=== PATIENT | female | born 1990 | race African-American/Black ===

== ENCOUNTER 2017-04-30 04:06 | Emergency (ER) | payer OTHER ==
[2017-04-30 04:19] VITALS: BMI 54.8
[2017-04-30] MEDS ORDERED: KETOROLAC TROMETHAMINE 30 MG/1 ML VIAL IM ONE (04:28)
--- NOTE | 2017-04-30 04:33 | PDOC ---
History of Present Illness - General Chief Complaint: Pain Stated Complaint: LEG PAIN Time Seen by Provider: 04/30/17 04:15 History Source: Patient Exam Limitations: No Limitations - History of Present Illness Initial Comments: 04/30/17 04:29 26yo Female patient morbidly obese presents to ED c/o right LE/Knee pain. 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 While sleeping this morning, pain returned and worse. Patient came in for evaluation. Denies OTC medication use. LNMP: 1 month ago. Occurred: reports: yesterday Severity: Yes: moderate Lower Extremity Pain Location: right: knee Method of Injury: No: unknown, assault, burn, direct blow, fell, incised, motor vehicle accident, sports injury, twisted, other Modifying Factors: worse with: None, cold therapy, immobilization, pain medication, rest, other Associated Symptoms: See HPI Lower Ext. Injury Location - Specific Injury Location Knees: right soft tissue tenderness, right pain, left non-tender, bilateral no evidence of injury, bilateral normal range of motion, bilateral normal inspection Extremity Pain Location - Extremity Pain Location Extremity Pain Locations: right: knee, leg Past History - Travel Traveled outside of the country in the last 30 days: No Close contact w/someone who was outside of country & ill: No - Past Medical History Allergies/Adverse Reactions: Allergies Allergy/AdvReac Type Severity Reaction Status Date / Time No Known Allergies Allergy Verified 04/30/17 04:17 - Suicide/Smoking/Psychosocial Hx Smoking History: Never smoked Have you smoked in the past 12 months: No Information on smoking cessation initiated: No Hx Alcohol Use: No Drug/Substance Use Hx: No Review of Systems - Review of Systems Able to Perform ROS?: Yes Is the patient limited [place] proficient: No Musculoskeletal: Yes: Joint Pain, Other (Right leg pain) All Other Systems: Reviewed and Negative *Physical Exam - Vital Signs Last Vital Signs Temp Pulse Resp BP Pulse Ox 98.0 F 76 14 119/70 98 04/30/17 04:17 04/30/17 04:17 04/30/17 04:17 04/30/17 04:17 04/30/17 04:17 - Physical Exam General Appearance: Yes: Nourished, Appropriately Dressed, Mild Distress. No: Apparent Distress, Moderate Distress, Severe Distress Respiratory/Chest: positive: Lungs Clear, Normal Breath Sounds. negative: Chest Tender, Respiratory Distress, Accessory Muscle Use, Labored Respiration, Rapid RR, Paradoxal Breathing, Rhonchi, Stridor, Wheezing Cardiovascular: positive: Regular Rhythm, Regular Rate Musculoskeletal: positive: Normal Inspection. negative: CVA Tenderness, Decreased Range of Motion, Vertebral Tenderness Extremity: positive: Normal Capillary Refill, Normal Inspection, Normal Range of Motion, Tender (Right Patella region.). negative: Pedal Edema, Swelling, Calf Tenderness, Erythema, Inflammation Integumentary: positive: Normal Color, Dry, Warm Neurologic: positive: warp dyeing tender II-XII NML intact, Fully Oriented, Alert, Normal Mood/ Affect, Normal Response, Motor Strength 5/5 ED Treatment Course - RADIOLOGY Radiology Studies Ordered: Category Date Time Status KNEE 3 POS-RIGHT [RAD] Stat Radiology 04/30/17 04:27 Ordered
[2017-04-30 04:43] LABS: BASOPHIL 0.5 % (0-2.0); EOSINOPHIL 2.3 % (0-4.5); MCH 26.3 pg (25.7-33.7); MCHC 32.7 g/dl (32.0-36.0); MEAN CELL VOLUME 80.5 fl (80-96); MEAN PLT VOLUME 8.6 fl (7.5-11.1); NEUTROPHILS 57.7 % (42.8-82.8); PLATELET COUNT 225 K/MM3 (134-434); RDW 14.4 % (11.6-15.6); WHITE BLOOD COUNT 7.1 K/mm3 (4.0-10.0)
--- NOTE | 2017-04-30 04:49 | PDOC ---
*Physical Exam - Vital Signs Last Vital Signs Temp Pulse Resp BP Pulse Ox 98.0 F 76 14 119/70 98 04/30/17 04:17 04/30/17 04:17 04/30/17 04:17 04/30/17 04:17 04/30/17 04:17 ED Treatment Course - LABORATORY CBC & Chemistry Diagram: 04/30/17 04:29 04/30/17 04:29 - Medications Given in the ED: ED Medications Discontinued Medications Generic Name Dose Route Start Last Admin Trade Name Tamar PRN Reason Stop Dose Admin Oxycodone/Acetaminophen 1 combo 04/30/17 04:28 04/30/17 04:43 Percocet 5/325 - PO 04/30/17 04:29 1 combo ONCE ONE Administration Medical Decision Making - Medical Decision Making 04/30/17 04:49 agree with care from JALEN Lombardi *DC/Admit/Observation/Transfer Diagnosis at time of Disposition: Leg pain - Discharge Dispostion Disposition: HOME Condition at time of disposition: Good - Patient Instructions Printed Discharge Instructions: DI for Leg Pain Additional Instructions: The source of your pain is most likely muscular as labs, x-ray and ultrasound were all negative. Take Motrin or Tylenol as needed for pain and follow-up with your PMD - Post Discharge Activity Forms/Work/School Notes: Back to Work
[2017-04-30] MEDS ORDERED: KETOROLAC TROMETHAMINE 60 MG/2 ML VIAL ONE (04:57)
[2017-04-30 05:05] LABS: INR 0.98 (0.82-1.09); PROTHROMBIN TIME (PATIENT) 10.8 SEC (9.98-11.88)
[2017-04-30 05:07] LABS: ACTIVATED PTT 34.8 SECONDS (26.9-34.4)
[2017-04-30 05:17] LABS: ALBUMIN 3.7 g/dl (3.4-5.0); ALK PHOS 68 U/L (45-117); ANION GAP 9 (8-16); BILIRUBIN,TOTAL 0.7 mg/dL (0.2-1.0); CALCIUM 9.1 mg/dL (8.5-10.1); CO2 26 mmol/L (21-32); CREATININE 0.9 mg/dL (0.55-1.02); GLUCOSE,RANDOM 95 mg/dL (74-106); SGOT/AST 29 U/L (15-37); SGPT/ALT 44 U/L (12-78); TOT PROT 7.4 g/dl (6.4-8.2)
[2017-04-30 05:56] LABS: PH,URINE 5.5 (5.0-8.0); URINE APPEARANCE SL CLOUDY; URINE BILIRUBIN NEGATIVE (NEGATIVE); URINE BLOOD TRACE-INTA (NEGATIVE); URINE GLUCOSE (UA) NEGATIVE (NEGATIVE); URINE KETONE NEGATIVE (NEGATIVE); URINE NITRITE NEGATIVE (NEGATIVE); URINE PROTEIN NEGATIVE (NEGATIVE); URINE UROBILINOGEN 0.2 mg/dL (0.2-1.0)
[2017-04-30 05:57] LABS: URINE COLOR YELLOW
--- NOTE | 2017-04-30 07:35 | PDOC ---
*Physical Exam - Vital Signs Last Vital Signs Temp Pulse Resp BP Pulse Ox 98.0 F 76 14 119/70 98 04/30/17 04:17 04/30/17 04:17 04/30/17 04:17 04/30/17 04:17 04/30/17 04:17 - Physical Exam General Appearance: Yes: Appropriately Dressed. No: Apparent Distress HEENT: positive: Normal Voice Neck: positive: Supple Respiratory/Chest: negative: Respiratory Distress Extremity: positive: Normal Inspection. negative: Swelling Integumentary: positive: Dry, Warm Neurologic: positive: Fully Oriented, Alert, Normal Mood/Affect ED Treatment Course - LABORATORY CBC & Chemistry Diagram: 04/30/17 04:29 04/30/17 04:29 - ADDITIONAL ORDERS Additional order review: Laboratory Results 04/30/17 04/30/17 04/30/17 05:00 04:32 04:29 PT with INR INR PTT (Actin FS) Sodium 141 Potassium 4.2 Chloride 106 Carbon Dioxide 26 Anion Gap 9 BUN 22 H Creatinine 0.9 Creat Clearance w eGFR > 60 Random Glucose 95 Calcium 9.1 Total Bilirubin 0.7 AST 29 ALT 44 Alkaline Phosphatase 68 Total Protein 7.4 Albumin 3.7 Serum , Qual Negative Urine Color Yellow Urine Appearance Sl cloudy Urine pH 5.5 Urine Protein Negative Urine Glucose (UA) Negative Urine Ketones Negative Urine Blood Trace-inta Urine Nitrite Negative Urine Bilirubin Negative Urine Urobilinogen 0.2 Urine HCG, Qual Cancelled 04/30/17 04:29 PT with INR 10.80 INR 0.98 PTT (Actin FS) 34.8 H Sodium Potassium Chloride Carbon Dioxide Anion Gap BUN Creatinine Creat Clearance w eGFR Random Glucose Calcium Total Bilirubin AST ALT Alkaline Phosphatase Total Protein Albumin Serum , Qual Urine Color Urine Appearance Urine pH Urine Protein Urine Glucose (UA) Urine Ketones Urine Blood Urine Nitrite Urine Bilirubin Urine Urobilinogen Urine HCG, Qual 04/30/17 04:29 RBC 5.01 MCV 80.5 MCHC 32.7 RDW 14.4 MPV 8.6 Neutrophils % 57.7 Lymphocytes % 30.0 Monocytes % 9.5 Eosinophils % 2.3 Basophils % 0.5 - Medications Given in the ED: ED Medications Discontinued Medications Generic Name Dose Route Start Last Admin Trade Name Freq PRN Reason Stop Dose Admin Ketorolac Tromethamine 60 mg 04/30/17 04:28 04/30/17 05:15 Toradol Injection - IM 04/30/17 04:29 Not Given ONCE ONE Oxycodone/Acetaminophen 1 combo 04/30/17 04:28 04/30/17 04:43 Percocet 5/325 - PO 04/30/17 04:29 1 combo ONCE ONE Administration Medical Decision Making - Medical Decision Making 04/30/17 07:33 Consent out to me at 7 AM by JALEN ferrer. Patient is a 26-year-old morbidly obese female with atraumatic right lower extremity pain. Labs, x-ray negative. Pending ultrasound rule out DVT. As per prior team. if US is negative, patient okay to be discharged with over-the- counter meds and follow up with PMD 04/30/17 09:14 DVT study neg. Pt stable for dc w/ otc meds for pain and pmd f/u 04/30/17 09:18 *DC/Admit/Observation/Transfer Diagnosis at time of Disposition: Leg pain Qualifiers: Laterality: right Qualified Code(s): M79.604 - Pain in right leg - Discharge Dispostion Disposition: HOME Condition at time of disposition: Good - Patient Instructions Printed Discharge Instructions: DI for Leg Pain Additional Instructions: The source of your pain is most likely muscular as labs, x-ray and ultrasound were all negative. Take Motrin or Tylenol as needed for pain and follow-up with your PMD - Post Discharge Activity Forms/Work/School Notes: Back to Work
[2017-04-30 09:47] VITALS: BP 117/63; PULSE 68; TEMP 97.9
[2017-04-30 10:13] LABS: URINE LEUK ESTERASE Negative (NEGATIVE)
== END 2017-04-30 09:30 | disposition home or self-care (01) ==
LOC: JER 04:06
DX: M79.604 Pain in right leg (principal); E66.01 Morbid (severe) obesity due to excess calories; Z68.43 Body mass index [BMI] 50.0-59.9, adult
CPT/HCPCS: 36415; 73562-TC-RT; 80053; 81003; 84703; 85025; 85610; 85730; 93971-TC; 99283-25

== ENCOUNTER 2018-12-21 06:27 | Emergency (ER) | payer BC, OTHER | END 2018-12-21 09:28 | disposition home or self-care (01) | LOC: JER 06:27 | DX: M79.662 Pain in left lower leg (principal) ==